=== PATIENT | male | born 1985 | race Caucasian/White ===

== ENCOUNTER 2017-03-08 02:12 | Emergency (ER) | payer OTHER ==
[2017-03-08 04:12] LABS: AMPHETAMINE QUAL UR NONE DETECTED (NEG <=1000)
[2017-03-08 05:19] VITALS: BP 115/77
== END 2017-03-08 05:19 | disposition home or self-care (01) ==
LOC: ED 02:12
PROVIDERS: Emergency Medicine
DX: R11.10 Vomiting, unspecified (principal)
CPT/HCPCS: Q0162

== ENCOUNTER 2017-09-30 00:48 | Emergency (ER) | payer OTHER ==
[~2017-09-30] VITALS: Ht 165.1 cm; Wt 47.6 kg
[2017-09-30 00:59] VITALS: Ht 165.1 cm; Wt 47.6 kg
[2017-09-30 01:34] LABS: BASOPHIL % 0.2 % (0-2); PLATELET COUNT 285 x10^3mcL (130-400); RED CELL DISTRIBUTION WIDTH 13.4 % (11.5-14.5)
[2017-09-30 01:49] LABS: CALCIUM 8.3 mg/dL (8.5-10.1); CARBON DIOXIDE 30.2 mmol/L (21-32); CHLORIDE SERUM 106 mmol/L (98-107); CREATININE SERUM 0.8 mg/dL (0.7-1.3); GFR1 > 60 mL/min; GLUCOSE SERUM 101 mg/dL (74-106); POTASSIUM SERUM 3.8 mmol/L (3.5-5.1); SODIUM SERUM 139 mmol/L (136-145)
[2017-09-30 01:54] LABS: ALBUMIN 3.6 g/dL (3.4-5.0); ALKALINE PHOSPHATASE 98 U/L (46-116); ALT/SGPT 32 U/L (16-63); AST/SGOT 22 U/L (15-37); BILIRUBIN TOTAL 0.27 mg/dL (0.20-1.00); CHOLESTEROL 152 mg/dL (<200); TOTAL PROTEIN, SERUM 7.5 g/dL (6.4-8.2); TRIGLYCERIDES 54 mg/dL (<150)
[2017-09-30 01:58] LABS: CHOLESTEROL/HDL RATIO 2.3; HDL CHOLESTEROL 65 mg/dL (40-60)
[2017-09-30 02:52] VITALS: BP 126/79
== END 2017-09-30 02:52 | disposition home or self-care (01) ==
LOC: ED 00:48
PROVIDERS: Specialist
DX: R56.9 Unspecified convulsions (principal); R55 Syncope and collapse; J45.909 Unspecified asthma, uncomplicated
CPT/HCPCS: 36415; 83880

== ENCOUNTER 2018-12-27 23:07 | Emergency (ER) | payer OTHER ==
[~2018-12-27] VITALS: Ht 162.6 cm; Wt 49.9 kg
[2018-12-27 23:31] VITALS: Ht 162.6 cm; Wt 49.9 kg
[2018-12-28 03:14] VITALS: BP 100/54
== END 2018-12-28 03:14 | disposition home or self-care (01) ==
LOC: ED 23:07
DX: B34.9 Viral infection, unspecified (principal); R51 Headache; J45.909 Unspecified asthma, uncomplicated
CPT/HCPCS: 87804; J1885; J7030

== ENCOUNTER 2019-03-15 15:23 | Emergency (ER) | payer OTHER ==
[~2019-03-15] VITALS: Ht 162.6 cm; Wt 48.1 kg
[2019-03-15 15:34] VITALS: BP 116/77; Ht 162.6 cm; Wt 48.1 kg
== END 2019-03-15 16:21 | disposition home or self-care (01) ==
LOC: ED 15:23
DX: S91.331A Puncture wound without foreign body, right foot, initial encounter (principal); J45.909 Unspecified asthma, uncomplicated; W22.8XXA Striking against or struck by other objects, initial encounter; Y93.89 Activity, other specified; Y92.89 Other specified places as the place of occurrence of the external cause; Y99.8 Other external cause status
CPT/HCPCS: 90715